=== PATIENT | male | born 1990 | race Caucasian/White ===

== ENCOUNTER 2018-05-31 23:31 | Emergency (ER) | payer MEDICAID, OTHER ==
[~2018-05-31] VITALS: Ht 165.1 cm; Wt 74.0 kg
[2018-06-01 00:09] VITALS: BP 118/64
[2018-06-01] MEDS ORDERED: SODIUM CHLORIDE 0.9% 1,000 ML IV ONE (00:19)
[2018-06-01 01:14] LABS: BASOPHILS % 0.5 % (0.0-2.0); EOSINOPHILS % 2.1 % (0.0-5.0); HEMOGLOBIN. 11.8 g/dL (14.0-18.0); LYMPHOCYTES % 17.8 % (20.0-50.0); MEAN CORPUSCULAR HEMOGLOBIN 32.1 pg (28.0-32.0); MEAN CORPUSCULAR VOLUME 92.5 fL (80.0-94.0); MEAN PLATELET VOLUME 9.5 fl (7.4-10.4); MONOCYTES % 6.4 % (2.0-8.0); NEUTROPHILS % 73.2 % (40.0-76.0); PLATELET 273 x1000/uL (130-400); RED BLOOD CELL COUNT 3.68 mill/uL (4.7-6.1)
[2018-06-01 01:18] LABS: CHLORIDE 105 mEq/L (98-107)
== END 2018-06-01 01:06 | disposition left against medical advice (07) ==
LOC: ER 23:31
DX: R06.02 Shortness of breath (principal); D64.9 Anemia, unspecified; E87.2 Acidosis; E03.9 Hypothyroidism, unspecified; F20.9 Schizophrenia, unspecified; F31.9 Bipolar disorder, unspecified; F41.9 Anxiety disorder, unspecified
CPT/HCPCS: 36415; 80053; 80178; 83605; 83880; 84443; 84484; 85025; 93005; 99285; J7030; Z7610

== ENCOUNTER 2018-09-15 21:55 | Emergency (ER) | payer SELFPAY ==
[~2018-09-15] VITALS: Ht 165.1 cm; Wt 73.0 kg
[2018-09-16] MEDS ORDERED: ONDANSETRON HCL 4MG/2ML INJ IV STA (02:30)
[2018-09-16] MEDS ORDERED: SODIUM CHLORIDE 0.9% 1,000 ML IV ONE (02:30)
[2018-09-16 03:18] LABS: BASOPHILS % 0.2 % (0.0-2.0); HEMATOCRIT. 41.6 % (42.0-52.0); HEMOGLOBIN. 14.4 g/dL (14.0-18.0); LYMPHOCYTES % 7.6 % (20.0-50.0); MEAN CORPUSCULAR HEMOGLOBIN 31.7 pg (28.0-32.0); MEAN CORPUSCULAR VOLUME 91.6 fL (80.0-94.0); MEAN PLATELET VOLUME 9.3 fl (7.4-10.4); MONOCYTES % 4.1 % (2.0-8.0); NEUTROPHILS % 88.1 % (40.0-76.0); PLATELET 260 x1000/uL (130-400); RED BLOOD CELL COUNT 4.54 mill/uL (4.7-6.1); RED CELL DISTRIBUTION WIDTH 13.6 % (11.6-14.6)
[2018-09-16 03:22] LABS: CHLORIDE 104 mEq/L (98-107)
[2018-09-16 04:59] LABS: CLARITY URINE CLEAR (CLEAR); COLOR URINE YELLOW (YELLOW); KETONES URINE 1+ (NEGATIVE); LEUKOCYTE ESTERASE URINE TRACE (NEGATIVE); NITRITE URINE NEGATIVE (NEGATIVE); OCCULT BLOOD URINE NEGATIVE (NEGATIVE); PH URINE 8.5 (4.5-8.0); PROTEIN URINE TRACE (NEGATIVE); SPECIFIC GRAVITY URINE 1.026 (1.005-1.030)
[2018-09-16 05:30] VITALS: BP 125/62
[2018-09-16 05:33] LABS: *AMPHETAMINES SCREEN URINE NEGATIVE (NEGATIVE); *BARBITURATES SCREEN URINE NEGATIVE (NEGATIVE)
[2018-09-16 05:34] LABS: *BENZODIAZEPINES SCREEN URINE NEGATIVE (NEGATIVE); *COCAINE SCREEN URINE NEGATIVE (NEGATIVE); METHADONE URINE SCREEN NEGATIVE (NEGATIVE); OPIATES URINE SCREEN NEGATIVE (NEGATIVE); PHENCYCLIDINE URINE SCREEN NEGATIVE (NEGATIVE)
[2018-09-16 05:35] LABS: CANNABINOID URINE SCREEN PRESUMTIVE POSITIVE (NEGATIVE)
== END 2018-09-16 06:16 | disposition home or self-care (01) ==
LOC: ER 21:55
DX: N39.0 Urinary tract infection, site not specified (principal); R46.81 Obsessive-compulsive behavior
CPT/HCPCS: 36415; 80053; 80305; 81003; 85025; 96361; 96374; 99283; J2405; J7030

== ENCOUNTER 2018-09-30 21:45 | Emergency (ER) | payer OTHER | END 2018-09-30 23:07 | disposition left against medical advice (07) | LOC: ER 21:45 | DX: Z53.21 Procedure and treatment not carried out due to patient leaving prior to being seen by health care provider (principal) ==

== ENCOUNTER 2019-04-13 03:27 | Emergency (ER) | payer MEDICAID, OTHER ==
[~2019-04-13] VITALS: Ht 165.1 cm; Wt 75.0 kg
[2019-04-13 06:44] LABS: HEMATOCRIT. 36.2 % (42.0-52.0); HEMOGLOBIN. 12.9 g/dL (14.0-18.0); LYMPHOCYTES % 29.9 % (20.0-50.0); MEAN CORPUSCULAR VOLUME 92.4 fL (80.0-94.0); MEAN PLATELET VOLUME 8.9 fl (7.4-10.4); MONOCYTES % 5.7 % (2.0-8.0); NEUTROPHILS % 60.4 % (40.0-76.0); PLATELET 268 x1000/uL (130-400); RED BLOOD CELL COUNT 3.92 mill/uL (4.7-6.1)
[2019-04-13 06:47] LABS: CHLORIDE 108 mEq/L (98-107)
[2019-04-13 06:49] LABS: CLARITY URINE CLEAR (CLEAR); COLOR URINE YELLOW (YELLOW); KETONES URINE NEGATIVE (NEGATIVE); LEUKOCYTE ESTERASE URINE NEGATIVE (NEGATIVE); NITRITE URINE NEGATIVE (NEGATIVE); OCCULT BLOOD URINE NEGATIVE (NEGATIVE); PROTEIN URINE NEGATIVE (NEGATIVE); SPECIFIC GRAVITY URINE 1.006 (1.005-1.030); UROBILINOGEN URINE 0.2 E.U./dL (0.2-1.0)
[2019-04-13 06:51] LABS: ETHANOL BLOOD < 10 mg/dL
[2019-04-13 07:45] LABS: *AMPHETAMINES SCREEN URINE NEGATIVE (NEGATIVE); *BARBITURATES SCREEN URINE NEGATIVE (NEGATIVE); *BENZODIAZEPINES SCREEN URINE NEGATIVE (NEGATIVE); *COCAINE SCREEN URINE NEGATIVE (NEGATIVE); CANNABINOID URINE SCREEN NEGATIVE (NEGATIVE); METHADONE URINE SCREEN NEGATIVE (NEGATIVE); OPIATES URINE SCREEN NEGATIVE (NEGATIVE); PHENCYCLIDINE URINE SCREEN NEGATIVE (NEGATIVE)
[2019-04-13] MEDS ORDERED: ACETAMINOPHEN 325MG TABLET PO ONE (10:15)
[2019-04-13 15:00] VITALS: BP 125/79
== END 2019-04-13 15:09 | disposition home or self-care (01) ==
LOC: ER 03:27
DX: R45.851 Suicidal ideations (principal); F31.9 Bipolar disorder, unspecified; F42.9 Obsessive-compulsive disorder, unspecified
CPT/HCPCS: 36415; 80305; 80320; 99284; G0480

== ENCOUNTER 2019-10-26 13:58 | Emergency (ER) | payer MEDICAID ==
[~2019-10-26] VITALS: Ht 165.1 cm; Wt 75.0 kg
[2019-10-26] MEDS ORDERED: IBUPROFEN 600MG TABLET PO ONE (15:15)
[2019-10-26 15:41] VITALS: BP 148/73
[2019-10-26] MEDS ORDERED: LIDOCAINE HCL 1% 20ML VIAL (Pyxis) INJ INFIL ONE (16:30)
[2019-10-26] MEDS ORDERED: CEFTRIAXONE SODIUM 1 G/VIAL IM ONE (16:30)
== END 2019-10-26 17:11 | disposition home or self-care (01) ==
LOC: ER 14:02
DX: J18.9 Pneumonia, unspecified organism (principal); F31.9 Bipolar disorder, unspecified
CPT/HCPCS: 71045; 87070; 87430; 93005; 96372; 99285; J0696; J3490

== ENCOUNTER 2022-06-18 08:51 | Emergency (ER) | payer MEDICAID, OTHER ==
[~2022-06-18] VITALS: Ht 165.1 cm; Wt 64.0 kg
[2022-06-18 08:56] VITALS: BP 131/79
[2022-06-18] MEDS ORDERED: TOPUD PO (10:31)
[2022-06-18] MEDS ORDERED: TUSSL PO (10:31)
[2022-06-18] MEDS ORDERED: ALBU6.7H9 INH (10:43)
== END 2022-06-18 11:15 | disposition home or self-care (01) ==
LOC: ER 08:51
DX: B34.9 Viral infection, unspecified (principal); I49.9 Cardiac arrhythmia, unspecified
CPT/HCPCS: 71045; 93005; 99283